=== PATIENT | female | born 1965 | race Caucasian/White ===

== ENCOUNTER 2016-11-20 14:11 | Emergency (ER) | payer MEDICAID, OTHER ==
[~2016-11-20] VITALS: Ht 152.4 cm; Wt 59.0 kg
[2016-11-20 14:14] VITALS: Ht 152.4 cm; Wt 59.0 kg
--- NOTE | 2016-11-20 14:57 | RADRPT ---
PROCEDURE: XR Left Ankle CLINICAL INDICATION: Trauma TECHNIQUE: Standard 3 view radiographs were submitted. COMPARISON: None FINDINGS: Osseous structures: Well mineralized and intact with no fracture or destructive process identified. Joint spaces: Well maintained with no significant erosions or spurring evident. Soft tissues: Appear unremarkable. IMPRESSION: Unremarkable left ankle. Physician Ymui Date Time Electronically viewed and signed by Artur Reddy Physician on 11/20/2016 14:56 /
[2016-11-20] MEDS ORDERED: IBUP-1542 PO (15:01)
--- NOTE | 2016-11-20 15:04 | ERD ---
ER Documentation Chief Complaint Date/Time DATE: 11/20/16 TIME: 15:03 Chief Complaint LEFT ANKLE PAIN X8 DAYS S/P FALL STAIRS HPI This 48-year-old female chipped down some stairs approximate days ago. She has persistent left ankle pain and bruising. The medial aspect of the left ankle and dorsum. She has no restricted range of motion or weakness. She has no fevers or bleeding. She denies any other injury ROS All systems reviewed and are negative except as per history of present illness. Medications Home Meds Active Scripts Ibuprofen* (Motrin*) 600 Mg Tab, 600 MG PO Q6, #20 TAB Prov:TOAN CHAVEZ MD 11/20/16 Allergies Allergies: Coded Allergies: No Known Allergy (Unverified , 11/20/16) PMhx/Soc Medical and Surgical Hx: pt denies Medical Hx, pt denies Surgical Hx Hx Alcohol Use: No Hx Substance Use: No Hx Tobacco Use: No Smoking Status: Never smoker Physical Exam Vitals Vital Signs Date Time Temp Pulse Resp B/P Pulse Ox O2 Delivery O2 Flow Rate FiO2 11/20/16 14:14 98.6 81 18 167/96 97 Physical Exam Const: [] Alert, not ill-appearing. Head: Atraumatic Eyes: Normal Conjunctiva ENT: Normal External Ears, Nose and Mouth. Neck: Full range of motion..~ No meningismus. Resp: Clear to auscultation bilaterally Cardio: Regular rate and rhythm, no murmurs Abd: Soft, non tender, non distended. Normal bowel sounds Skin: No petechiae or rashes Back: No midline or flank tenderness Ext: No cyanosis, or edema. There is some mild tenderness and swelling on the medial aspect of left ankle joint and dorsum with some slight resolving bruises. Is no deformities. There is no significant metatarsal tenderness or deformities. The left lower extremity is neurovascularly intact. Neur: Awake and alert Psych: Normal Mood and Affect Procedures/MDM X-ray left Ankle 3V Interpreted by me: Bones: [No fracture] Joints: No dislocation impression-normal left ankle x-ray She has signs and symptoms of left ankle sprain without evidence of fracture, dislocation, bacterial infection, deficits or ischemia. She'll be treated with ibuprofen, instructions for ice elevation, primary care and orthopedic follow- up. Departure Diagnosis: Primary Impression: Ankle injury Encounter type: initial encounter Laterality: left Qualified Code: S99.912A - Ankle injury, left, initial encounter Condition: Stable Patient Instructions: Treating Ankle Sprains, Sprain, Ankle, With X-Ray Referrals: NELDA RYAN MD Additional Instructions: Examines/ x ray normal hoy. Cheque otro vez con bobby doctor primario en el proximo murray or regresa para mas o nueva simptomas. TOAN CHAVEZ MD Nov 20, 2016 15:04
== END 2016-11-20 15:16 | disposition home or self-care (01) ==
LOC: FTE 14:11
DX: S99.912A Unspecified injury of left ankle, initial encounter (principal); W10.9XXA Fall (on) (from) unspecified stairs and steps, initial encounter; Y92.9 Unspecified place or not applicable
CPT/HCPCS: 73610; Z7502